=== PATIENT | male | born 1950 | race Caucasian/White ===

== ENCOUNTER → 2019-03-03 | Outpatient (CLI) | payer OTHER ==
--- NOTE | 2019-03-03 12:10 | 2DMMODE ---
[facility] [address] [place] [address] 2 D/M-MODE ECHOCARDIOGRAM Name: JODY MA Room #: REG CL MSánchez#: [id number] Admission: 03/03/19 Attend Phys: Guero Aponte MD Discharge: Date of : 46 Report #: [id number] THIS REPORT FOR: //name// APPROVED REPORT Study performed: 03/03/2019 11:05:53 EXAM: Comprehensive 2D, Doppler, and color-flow Echocardiogram Patient Location: Out-Patient Room #: Echo lab 2 Status: routine BSA: 2.58 HR: 723 bpm BP: 144/92 mmHg Rhythm: Atrial Fibrillation Other Information Study Quality: Adequate Indications Diabetes Dyspnea CAD Hypertension/HDD 2D Dimensions RVDd: 35.07 mm IVSd: 12.92 (7-11mm) LVOT Diam: 24.46 (18-24mm) LVDd: 55.30 mm PWd: 13.02 (7-11mm) Ascending Ao: 35.80 (22-36mm) LVDs: 42.75 (25-40mm) Aortic Root: 32.11 mm IVC: 26.00 mm Volumes Left Atrial Volume (Systole) Single Plane 4CH: 108.37 mL Single Plane 2CH: 100.41 mL LA ESV Index: 43.00 mL/m2 Aortic Valve AoV Peak Rojas.: 1.14 m/s AO Peak Gr.: 5.17 mmHg LVOT Max P.89 mmHg LVOT Max V: 0.85 m/s ALMA Vmax: 3.51 cm2 Pulmonary Valve [facility] [address] [place] [address] 2 D/M-MODE ECHOCARDIOGRAM Name: JODY MA Room #: REG CL Seven#: [id number] Admission: 03/03/19 Attend Phys: Guero Aponte MD Discharge: Date of : 46 Report #: [id number] PV Peak Rojas.: 0.76 m/s PV Peak Gr.: 2.32 mmHg Left Ventricle The left ventricle is normal size. There is normal LV segmental wall motion. Mild concentric left ventricular hypertrophy. The left ventricular systolic function is normal. The left ventricular ejection fraction is within the normal range. LVEF is 55-60%. This study is not technically sufficient to allow evaluation of the LV diastolic function due to atrial fibrillation. Right Ventricle The right ventricle is normal size. The right ventricular systolic function is normal. Atria Left atrium is dilated. Right atrium is at the upper limits of normal. Aortic Valve The aortic valve is normal in structure. No aortic regurgitation is present. There is no aortic valvular stenosis. Mitral Valve The mitral valve is normal in structure. Trace mitral regurgitation. No evidence of mitral valve stenosis. Tricuspid Valve The tricuspid valve is normal in structure. There is no tricuspid valve regurgitation noted. Pulmonic Valve The pulmonary valve is normal in structure. Trace pulmonic regurgitation. Great Vessels The aortic root is normal in size. IVC is dilated and collapses >50% with inspiration. Pericardium Trace pericardial effusion. <Conclusion> The left ventricle is normal size. LVEF is 55-60%. Left atrium is dilated. The aortic valve is normal in structure. [facility] [address] [place] [address] 2 D/M-MODE ECHOCARDIOGRAM Name: JODY MA Room #: REG [facility].#: [id number] Admission: 03/03/19 Attend Phys: Guero Aponte MD Discharge: Date of : 46 Report #: [id number] The mitral valve is normal in structure. Trace mitral regurgitation. The tricuspid valve is normal in structure. The pulmonary valve is normal in structure. Trace pulmonic regurgitation. Trace pericardial effusion. <ELECTRONICALLY SIGNED> By: Renaldo Wilson MD 03/03/19 1210 09 09 Renaldo Wilson MD /INF
== END ==
LOC: CV 10:47
DX: I25.10 Atherosclerotic heart disease of native coronary artery without angina pectoris (principal); E11.9 Type 2 diabetes mellitus without complications; I48.91 Unspecified atrial fibrillation; I11.9 Hypertensive heart disease without heart failure

== ENCOUNTER → 2019-05-12 | Outpatient (CLI) | payer OTHER ==
--- NOTE | 2019-05-13 09:57 | EKG ---
[address] [address] ELECTROCARDIOGRAM REPORT Name: JODY MA [facility]: [id number] Admission: 05/12/19 Attend Phys: Guero Aponte MD Discharge: Date of : 46 Report #: [id number] THIS REPORT FOR: //name// [facility] Test Date: 2019-05-12 Test Time: 10:31:54 Pat Name: JODY MA Department: Room: Gender: Gameroom Technician: Elsa PALMER : 1950 Requested By: Guero Aponte Order Number: [id number] MD: Vick Yang Measurements Intervals [place] Rate: 64 P: 0 TX: 141 QRS: 82 QRSD: 98 T: 62 QT: 419 QTc: 433 Interpretive Statements Atrial fibrillation Anterior infarct, old No previous ECG available for comparison Electronically Signed On 05-13-2019 9:56:59 FRAUD REPRESENTATIVE by Vick Yang [email or web address] <ELECTRONICALLY SIGNED> By: Vick Yang MD, [facility] 05/13/19 0956 1031 1031 Vick Yang MD, FACC /EPI
== END ==
LOC: CV 10:03
DX: I48.91 Unspecified atrial fibrillation (principal)